=== PATIENT | female | born 1940 | race Caucasian/White ===

== ENCOUNTER 2021-10-26 12:03 | Observation (INO) ==
[2021-10-26] MEDS ORDERED: DILTIAZEM 25 MG/5 ML VIAL IV ONE (12:22)
[2021-10-26] MEDS ORDERED: DILTIAZEM 100 MG VIAL.ADD IV ONE (12:23)
[2021-10-26] MEDS ORDERED: DILTIAZEM 25 MG/5 ML VIAL IV STA (12:23)
[2021-10-26] MEDS: DILTIAZEM INJ 100 MG in SODIUM CHLORIDE 0.9% 100 ML IV SCH (12:26)
[2021-10-26] MEDS ORDERED: SODIUM CHLORIDE 0.9% 500 ML IV STA (12:32)
[2021-10-26 12:36] LABS: Basophils # 0.1 10*3/uL (0.0-0.2); Basophils % 0.7 % (0.0-0.8); Eosinophils # 0.3 10*3/uL (0.0-0.87); Eosinophils % 3.7 % (0.00-10.9); Hematocrit 38.1 VOL% (35.7-47.0); Hemoglobin 13.2 GM/DL (12.0-16.0); Immature Granulocytes % 0.4 %; Immature Granulocytes Absolute 0.03 #; Lymphocytes % 14.5 % (21.3-54.2); Mean Corpuscular HGB Conc 34.6 GM/DL (32-36); Mean Platelet Volume 8.9 FL (9.6-12.0); Monocytes # 0.7 10*3/uL (0.11-0.8); Monocytes % 9.3 % (1.7-12.7); Neutrophils % 71.4 % (38.7-73.9); Platelet Count 268 T/CUMM (130-400); Red Blood Count 4.01 MC/CUMM (3.8-5.5); Red Cell Distribution Width 12.5 % (9.3-17.3)
[2021-10-26 12:47] LABS: PT Patient Result 11.3 SECS (10.5-12.0)
[2021-10-26 13:08] LABS: Albumin 4.2 G/DL (3.4-5.0); Calcium 9.4 MG/DL (8.5-10.1); Osmolality,Calculated 274.8 MOS/KG (273-304); Thyroid Stimulating Hormone 2.32 uIU/ml (0.358-3.74); Total Protein 7.9 G/DL (6.4-8.2)
[2021-10-26] MEDS ORDERED: ONDANSETRON 4 MG/2 ML VIAL IV PRN (14:35)
[2021-10-26 14:51] LABS: Cannabinoid Screen,Urine Negative (Negative)
[2021-10-26] MEDS: DILTIAZEM CD 120 MG CAPSULE PO SCH (14:51)
[2021-10-26 14:52] LABS: Barbiturates Screen,Urine Negative (Negative); Benzodiazepines Screen,Urine Negative (Negative); Opiate Screen,Urine Negative (Negative); Phencyclidine Screen,Urine Negative (Negative)
[2021-10-26] MEDS: APIXABAN 5 MG TABLET PO SCH (21:50)
[2021-10-26] MEDS: ACETAMINOPHEN 325 MG TABLET PO PRN (22:10)
[2021-10-27 05:50] LABS: Basophils % 0.6 % (0.0-0.8); Eosinophils # 0.3 10*3/uL (0.0-0.87); Eosinophils % 5.7 % (0.00-10.9); Hematocrit 32.3 VOL% (35.7-47.0); Hemoglobin 10.9 GM/DL (12.0-16.0); Immature Granulocytes % 0.6 %; Immature Granulocytes Absolute 0.03 #; Lymphocytes # 1.5 10*3/uL (1.4-4.0); Mean Corpuscular HGB Conc 33.7 GM/DL (32-36); Mean Platelet Volume 8.8 FL (9.6-12.0); Monocytes # 0.6 10*3/uL (0.11-0.8); Neutrophils % 50.1 % (38.7-73.9); Platelet Count 193 T/CUMM (130-400); Red Blood Count 3.33 MC/CUMM (3.8-5.5); Red Cell Distribution Width 12.6 % (9.3-17.3); White Blood Count 4.9 T/CUMM (4-12)
[2021-10-27 06:11] LABS: Calcium 8.6 MG/DL (8.5-10.1); Osmolality,Calculated 268.2 MOS/KG (273-304); Potassium 3.5 MMOL/L (3.5-5.1); Risk Ratio 1.93; VLDL Cholesterol 13.4 MG/DL
[2021-10-27] MEDS: DILTIAZEM CD 120 MG CAPSULE PO SCH (08:49)
[2021-10-27] MEDS: APIXABAN 5 MG TABLET PO SCH (08:49)
[2021-10-27] MEDS: ACETAMINOPHEN 325 MG TABLET PO PRN (08:50)
[2021-10-27] MEDS ORDERED: PANTOPRAZOLE 40 MG TABLET PO SCH (09:00)
[2021-10-27] MEDS ORDERED: MAGNESIUM SULF RIDER 2 GM/50 ML PREMIX IV ONE (10:04)
[2021-10-27 11:55] VITALS: BP 121/68
[2021-10-27] MEDS: DILTIAZEM INJ 100 MG in SODIUM CHLORIDE 0.9% 100 ML IV SCH (12:53)
== END 2021-10-27 15:27 | disposition home or self-care (01) ==
LOC: N.ED 12:03 → N.EDINP 12:03 → N.TELES 16:55
PROVIDERS: ADMIT Internal Medicine Cardiovascular Disease; ATTEND Internal Medicine Cardiovascular Disease